=== PATIENT | female | born 1995 | race Caucasian/White ===

== ENCOUNTER 2020-09-24 15:40 | Outpatient (CLI) | payer OTHER | END 2020-09-24 23:59 | disposition home or self-care (01) | LOC: ER 15:40 | PROVIDERS: ATTEND Internal Medicine Infectious Disease | DX: Z00.00 Encounter for general adult medical examination without abnormal findings (principal) ==

== ENCOUNTER 2024-09-19 21:25 | Emergency (ER) | payer OTHER ==
[~2024-09-19] VITALS: Ht 154.9 cm; Wt 82.7 kg
[2024-09-19 21:30] VITALS: BP 135/75; PULSE 95; RESP 16; O2SAT 98
--- NOTE | 2024-09-20 01:29 | Physician Documentation ---
History of Present Illness ~ Chief Complaint: Abscess Stated Complaint: LEG PAIN Time Seen by MD: 00:44 Source: patient Mode of Arrival: POV Exam Limitations: no limitations HPI This patient is a 29-year-old female who presents to the ED with chief complaint of abscess. Patient reports that she has had issues with an abscess to her left lower leg. Patient states she has been dealing into the abscess for the past several weeks a med has gotten significantly worse over the past 24 hours. She states that she believes it started from an insect bite, as she woke up and noticed it. She was seen at an urgent care where she was prescribed some antibiotics, however when she finished them she still had her abscess. She states she was previously on doxycycline and has since taken another round of doxycycline again with no relief. Patient denies any associated symptoms at this time. Patient denies any alleviating or exacerbating factors. Tetanus Within 5 Years: No Medication Reconciliation Allergies: Coded Allergies: No Known Allergies (Unverified , 09/19/24) Scheduled Rifampin (Rifampin), 1 CAP PO Q12H Sulfamethoxazole/Trimethoprim (Bactrim Ds Tablet), 1 TAB PO Q12H Past Medical History Past Medical History: No Pertinent History Past Surgical History: no surgical history Smoking Status: Never smoker Alcohol Use: None Drug Use: none Review of Systems All Other Systems at this time: Reviewed and Negative Physical Exam Vital Signs: Temperature: 98.5, Source: Temporal, Heart Rate: 95, Respiratory Rate: 16, BP: 135/75, Pulse Oximetry: 98, Weight: 82.700 Oxygen Flow Rate: 0 Physical Exam General: The patient is well developed, well nourished, nontoxic appearing and is in no acute distress. Skin: [place], warm and dry with no rashes. HEENT: Head was normocephalic and atraumatic. Eyes - pupils equal, round, reactive to light and accommodation. Extraocular movements were intact. Conjunctivae were nonicteric. Ears - bilateral tympanic membranes were normal. The mouth and oropharynx were clear with moist mucous membranes. There were no pharyngeal exudates or erythema. Neck: Supple and nontender. There was no jugular venous distention, lymphadenopathy, thyromegaly or masses. Chest: Clear to auscultation bilaterally without wheezes, rales or rhonchi. No accessory muscle use. No dullness to percussion. Heart: Rate regular and rhythmic. S1, S2. No murmurs. Palpation of the chest wall was normal. No rubs or thrills. Abdomen: Soft, nontender and nondistended. Positive bowel sounds. No guarding or rebound. No hepatosplenomegaly or palpable masses. Extremities: LLE: No cyanosis, clubbing or edema. The patient moves all extremities. Pulses were equal and symmetric. Neurologic: Cranial nerves II-XII were intact. Sensation was intact to light touch throughout. Motor strength was 5/5 in all four extremities. Deep tendon reflexes were intact in both upper and lower extremities. Psychologic: The patient was oriented to person, place and time. The patient demonstrated appropriate judgement and insight. Procedures I & D Procedure : Site: Left lower leg Anesthesia: none Blade Size: 11 Prep/Supplies: betadine prep, irrigated Incision: mass incised, pus drained Tolerated Procedure Well?: yes, no complications Progress Results/Orders Results/Orders Completed Orders - MELISSA BISHOP MD Rifampin Capsule (Rifampin Capsule) (09/20/24 01:29) Sulfamethox/Trimetho. Ds Tab (Septra Ds (09/20/24 01:30) Tetanus/Pertuss/Diph Acell/Pf (Boostrix (09/20/24 02:00) Medications Received in ER Medications (Trade) Dose Ordered Sig/Rafal Route PRN Reason Start Time Stop Time Status Last Admin Dose Admin (rifampin capsule) 300 mg ONCE STAT PO 09/20/24 01:29 09/20/24 01:31 DC 09/20/24 02:08 300 MG (Septra DS tab) 1 tab ONCE ONCE PO 09/20/24 01:30 09/20/24 01:31 DC 09/20/24 02:09 1 TAB (Boostrix vaccine syringe) 0.5 ml ONCE ONCE IMVAC 09/20/24 02:00 09/20/24 02:01 DC 09/20/24 02:10 0.5 ML Vital Signs 09/19/24 21:30 Temp 98.5 Pulse 95 Resp 16 B/P (MAP) 135/75 Pulse Ox 98 O2 Flow Rate 0 Departure Time of Disposition: 02:09 Disposition: 01 HOME / SELF CARE / HOMELESS Impression: Primary Impression: Abscess Additional Impression: Cellulitis Qualified Codes: L03.116 - Cellulitis of left lower limb Condition: Stable Discharge Instructions: Abscess, Care After, Incision and Drainage Additional Instructions: Take entire course of antibiotics as prescribed. Referrals: NO PRIMARY CARE PROVIDER (PCP) Prescriptions Sulfamethoxazole/Trimethoprim (Bactrim Ds Tablet) 800 Mg-160 Mg Tablet 1 TAB PO Q12H for 10 Days, #20 TAB Prov: MELISSA BISHOP MD 09/20/24 Rifampin (Rifampin) 300 Mg Capsule 1 CAP PO Q12H for 5 Days, #10 CAP 0 Refills Prov: MELISSA BISHOP MD 09/20/24 Education Educated: Patient Educated regarding: diagnosis, treatment, need for follow up Signature Scribe Signature: Scribed for Melissa Bishop MD by Marce Paul . 09/20/24 02:09 MELISSA BISHOP MD Sep 20, 2024 01:29
[2024-09-20] MEDS ORDERED: SULF1TAB49 PO (02:01)
[2024-09-20] MEDS ORDERED: RIFA300C65 PO (02:01)
[2024-09-20] MEDS: sulfamethoxazole/trimethoprim DS (800/160mg) tablet PO ONE (02:09)
[2024-09-20] MEDS: TETanus/Pertussis (Acell)/Diphther VAC/PF (Tdap-Adult) 0.5ml syringe IMVAC ONE (02:10)
[2024-09-20 02:52] VITALS: TEMP 98.5
== END 2024-09-20 02:53 | disposition home or self-care (01) ==
LOC: ER 21:27
DX: L03.116 Cellulitis of left lower limb (principal)
CPT/HCPCS: 10060; 90471; 90715; 99284; A6449

== ENCOUNTER 2024-10-27 13:42 | Emergency (ER) | payer OTHER ==
[~2024-10-27] VITALS: Ht 154.9 cm; Wt 84.5 kg
[~2024-10-27 13:42] MED LIST: RIFA300C65 PO
[2024-10-27] MEDS: ondansetron 4mg rapidly disintigrating tab PO ONE (13:45)
[2024-10-27 13:54] VITALS: BP 122/80; PULSE 84; RESP 18; TEMP 98.1; O2SAT 98
[2024-10-27 14:20] LABS: MEAN PLATELET VOLUME 7.4 FL (7.4-10.4); RED CELL DISTRIBUTION WIDTH 13.3 % (11.5-14.5)
[2024-10-27 14:21] LABS: URINE HCG NEGATIVE (NEG)
[2024-10-27 14:23] LABS: LEUKOCYTE ESTERASE ,URINE NEGATIVE (Neg); NITRITES, URINE NEGATIVE (Neg); OCCULT BLOOD,URINE NEGATIVE (Neg)
[2024-10-27 14:35] LABS: CREATININE 0.84 MG/DL (0.40-0.90); TOTAL CARBON DIOXIDE 27.0 MMOL/L (24-32); eCRCL 73 ML/MIN; eGFR 79 ML/MIN
[2024-10-27 14:39] LABS: UA COLLECTION TYPE CLN CATCH MIDSTREAM
--- NOTE | 2024-10-27 15:30 | Physician Documentation ---
History of Present Illness ~ Chief Complaint: Bloody Stools Stated Complaint: VOMITING Time Seen by MD: 15:10 HPI This is a 29-year-old female who presents with concern for a single episode of bloody bowel movement, patient reports blood in toilet after bowel movement and on wiping, patient reports some blood clots with bowel movement as well. Patient reports no pain including no abdominal pain or rectal pain. Patient reports that she has had a headache and nausea recently though reports symptoms are currently well controlled with [id number] medications. Patient reports no recent rectal trauma. Patient reports family history of ulcerative colitis. Medication Reconciliation Allergies: Coded Allergies: No Known Allergies (Unverified , 09/19/24) Scheduled Rifampin (Rifampin), 1 CAP PO Q12H Past Medical History Past Medical History: No Pertinent History Past Surgical History: no surgical history Alcohol Use: None Drug Use: none Review of Systems ROS As stated above in the HPI, otherwise all systems are reviewed and negative. Physical Exam Vital Signs: Temperature: 98.1, Source: Temporal, Heart Rate: 84, Respiratory Rate: 18, BP: 122/80, Pulse Oximetry: 98, Weight: 84.450 Oxygen Flow Rate: 0 Physical Exam VITALS: Reviewed and as above. GENERAL: Alert, nontoxic appearing, no apparent distress. RESPIRATORY: No increased work of breathing, no respiratory distress, speaking in full clear sentences, clear lung sounds in all [place] CV: Regular rate and rhythm no murmur GI: Soft, nondistended, nontender, no rebound, no guarding, bowel sounds present Progress Results/Orders Results/Orders Vital Signs 10/27/24 13:54 Temp 98.1 Pulse 84 Resp 18 B/P (MAP) 122/80 Pulse Ox 98 O2 Flow Rate 0 Laboratory Tests Test 10/27/24 13:56 10/27/24 14:03 Urine Specimen Description Cln catch midstream Urine Color Straw Urine Clarity Clear Urine pH 7.0 Urine Specific [place] <=1.005 Urine Protein Negative Urine Glucose (UA) Negative Urine Ketones Negative Urine Occult Blood Negative Urine Nitrite Negative Urine Bilirubin Negative Urine Urobilinogen 0.2 Urine Leukocyte Esterase Negative Urine Culture Indicated Not ind Volume Urine Centrifuged 10 ml Urine HCG, Qualitative Negative Urine Comment White Blood Count 9.0 Red Blood Count 4.48 Hemoglobin 13.6 Hematocrit 39.1 Mean Corpuscular Volume 87.3 Mean Corpuscular Hemoglobin 30.3 Mean Corpuscular Hemoglobin Concent 34.7 Red Cell Distribution Width 13.3 Platelet Count 377 Mean Platelet Volume 7.4 Neutrophils (%) (Auto) 60.1 Lymphocytes (%) (Auto) 31.4 Monocytes (%) (Auto) 6.7 Eosinophils (%) (Auto) 1.5 Basophils (%) (Auto) 0.3 Neutrophils # (Auto) 5.4 Lymphocytes # (Auto) 2.8 Monocytes # (Auto) 0.6 Eosinophils # (Auto) 0.1 Basophils # (Auto) 0.0 CBC Comment Sodium Level 138 Potassium Level 3.8 Chloride Level 103 Carbon Dioxide Level 27.0 Anion Gap 8 Blood Urea Nitrogen 5 L Creatinine 0.84 Estimated GFR/1.73 m2 79 BUN/Creatinine Ratio 6.0 L Glucose Level 91 Calcium Level 9.0 Total Bilirubin 0.4 Aspartate Amino Transf (AST/SGOT) 12 Alanine Aminotransferase (ALT/SGPT) 24 Alkaline Phosphatase 82 Total Protein 8.4 H Albumin 4.2 Globulin 4.2 Albumin/Globulin Ratio 1.0 L Lipase 44 Chemistry Comments Medical Decision Making Findings This 29-year-old female presented with a single episode of painless rectal bleeding, given patient has no evidence of anemia on lab work and vital signs stable this is most likely an internal hemorrhoid, though discussed with the patient the possibility of more serious causes that would require a rectal exam, with shared decision-making patient will defer rectal exam today and follow up with primary care provider for referral to GI specialist for colonoscopy due to family history of ulcerative colitis. Patient is otherwise well-appearing hemodynamically stable and appropriate for outpatient follow up. Diff Dx GI Bleed:Consideration: Include: AE fistula, Bleeding diathesis, Blood loss anemia, Diverticulosis, Diverticulitis, Gastritis, Inflammatory BD Departure Time of Disposition: 15:25 Disposition: 01 HOME / SELF CARE / HOMELESS Impression: Primary Impression: Bloody stool Condition: Improved Discharge Instructions: Bloody Stools Additional Instructions: It was reassuring that you had only one episode of blood in your stool, your lab work was reassuring. Please follow up with your primary care provider for referral for a colonoscopy given your history of digestive problems and family history of ulcerative colitis. Please return to the emergency department if you continue to have frequent bloody stools. Please follow up with your primary ca re provider in the next few days. Please return to the emergency department for any new or worsening concerning symptoms. Referrals: NO PRIMARY CARE PROVIDER (PCP) Education Educated: Patient Educated regarding: diagnosis, treatment, prognosis, need for follow up Signature Scribe Signature: No scribe Attestation: The note accurately reflects work and decisions made by me.KRISTINE Randhawa 10/28/24 17:43 MERCEDES ROCA Oct 27, 2024 15:30
== END 2024-10-27 15:39 | disposition home or self-care (01) ==
LOC: ER 13:42
DX: K92.1 Melena (principal)
CPT/HCPCS: 36415; 80053; 81003; 81025; 83690; 85025; 99283